=== PATIENT | male | born 1960 ===

== ENCOUNTER 2017-11-07 11:47 | Emergency (ER) | payer MEDICAID ==
--- NOTE | 2017-11-07 13:02 | C.PDOC ---
History Of Present Illness 57yo male, sent to ER by Dr. Benson for removal of a dialysis catheter. Patient currently denies any fever, chills, chest pain and offers no medical complaints. Time Seen by Provider: 11/07/17 12:13 Chief Complaint (Nursing): Medical Clearance History Per: Patient History/Exam Limitations: no limitations Past Medical History Reviewed: Historical Data, Nursing Documentation, Vital Signs Vital Signs: Last Vital Signs Temp 98.7 F 11/07/17 13:31 Pulse 80 11/07/17 13:31 Resp 14 11/07/17 13:31 BP 124/86 11/07/17 13:31 Pulse Ox 97 11/07/17 13:31 Family History: States: No Known Family Hx - Social History Hx Alcohol Use: No Hx Substance Use: No Review Of Systems Constitutional: Negative for: Fever, Chills Cardiovascular: Negative for: Chest Pain Physical Exam - Physical Exam Appears: Non-toxic, No Acute Distress Skin: Warm, Dry Head: Normacephalic Eye(s): bilateral: Normal Inspection Neck: Normal ROM, Supple Chest: Symmetrical, Other (catheter in right upper chest; no surrounding erythema, edema, or signs of infection noted) Cardiovascular: Rhythm Regular Respiratory: Normal Breath Sounds Neurological/Psych: Oriented x3 ED Course And Treatment O2 Sat by Pulse Oximetry: 100 (RA) Pulse Ox Interpretation: Normal Progress Note: Case discussed with Dr. Benson and he will come see patient in the ER. The dialysis catheter was removed by him with success. Disposition - Disposition Referrals: [facility] [Outside] Disposition: HOME/ ROUTINE Disposition Time: 13:15 Condition: GOOD Additional Instructions: Follow up with the medical doctor within 1-2 days, Return if worsened. 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 - Scribe Statement The provider has reviewed the documentation as recorded by the Jimi Lim Provider Attestation: All medical record entries made by the Marianoibreese were at my direction and personally dictated by me. I have reviewed the chart and agree that the record accurately reflects my personal performance of the history, physical exam, medical decision making, and the department course for this patient. I have also personally directed, reviewed, and agree with the discharge instructions and disposition.
[2017-11-07] MEDS ORDERED: Lidocaine 2% MPF (5 ml) Inj ONE (13:11)
[2017-11-07 13:32] VITALS: BP 124/86; PULSE 80; RESP 14; TEMP 98.7
[2017-11-07 18:42] VITALS: O2SAT 100
--- NOTE | 2017-11-08 00:21 | OP ---
Copied To: Chucho Benson MD Attending MD: Chucho Benson MD PROCEDURE DATE: 11/07/2017 PREOPERATIVE DIAGNOSIS: Renal failure. POSTOPERATIVE DIAGNOSIS: Renal failure. PROCEDURE PERFORMED: Removal of PermCath. SURGEON: Chucho Benson MD ANESTHESIA: Local. ESTIMATED BLOOD LOSS: 5 mL. POSTOPERATIVE CONDITION: Stable. DESCRIPTION OF PROCEDURE: In the emergency room, the patient's right chest wall was prepped and draped. Local anesthesia was infiltrated, and the area was dilated using a sterile clamp. The catheter was removed easily. Bleeding was controlled with pressure and it was dressed sterilely. The patient tolerated the procedure well, returned to the recovery room in stable condition. Chucho Benson MD
== END 2017-11-07 13:32 | disposition home or self-care (01) ==
LOC: C.ER 11:47
DX: Z49.01 Encounter for fitting and adjustment of extracorporeal dialysis catheter (principal)